=== PATIENT | male | born 1965 | race Caucasian/White ===

== ENCOUNTER 2020-11-24 02:27 | Inpatient (IN) ==
[2020-11-24 04:52] LABS: Basophils % 0.2 % (0.0-0.8); Eosinophils % 0.1 % (0.00-10.9); Immature Granulocytes % 0.7 %; Immature Granulocytes Absolute 0.08 #; Lymphocytes # 1.6 10*3/uL (1.4-4.0); Lymphocytes % 13.9 % (21.2-54.2); Mean Corpuscular HGB Conc 33.3 GM/DL (32-36); Mean Corpuscular Volume 92.3 FL (87-102); Mean Platelet Volume 10.2 FL (9.6-12.0); Monocytes % 6.3 % (1.7-12.7); Neutrophils % 78.8 % (38.7-73.9); Platelet Count 153 T/CUMM (130-400); Red Blood Count 4.55 MC/CUMM (3.8-5.5); Red Cell Distribution Width 12.9 % (9.3-17.3); White Blood Count 11.2 T/CUMM (4-12)
[2020-11-24 05:05] LABS: Albumin 3.2 G/DL (3.4-5.0); Bilirubin,Total 0.8 MG/DL (0.20-1.00); Calcium 8.7 MG/DL (8.5-10.1); Osmolality,Calculated 268.4 MOS/KG (273-304); Potassium 4.7 MMOL/L (3.5-5.1)
[2020-11-24] MEDS ORDERED: SODIUM CHLORIDE 0.9% 1,000 ML IV STA (05:54)
[2020-11-24] MEDS ORDERED: IBUPROFEN 200 MG TABLET PO STA (05:54)
[2020-11-24] MEDS ORDERED: DEXAMETHASONE 4 MG/1 ML VIAL IV STA (05:55)
[2020-11-24] MEDS ORDERED: LEVOFLOXACIN INJ 750 MG/150 ML PREMIX IV STA (05:55)
[2020-11-24] MEDS ORDERED: DEXTROSE 50% 25 GM/50 ML VIAL IV PRN (07:43)
[2020-11-24] MEDS ORDERED: GLUCAGON 1 MG VIAL IM PRN (07:43)
[2020-11-24] MEDS ORDERED: ACETAMINOPHEN 325 MG TABLET PO PRN (07:43)
[2020-11-24] MEDS ORDERED: ONDANSETRON 4 MG/2 ML VIAL IV PRN (07:43)
[2020-11-24] MEDS ORDERED: MELATONIN 3 MG TABLET PO PRN (07:51)
[2020-11-24] MEDS ORDERED: AZITHROMYCIN INJ 500 MG in SODIUM CHLORIDE 0.9% 250 ML IV SCH (08:00)
[2020-11-24] MEDS ORDERED: REMDESIVIR 100 MG in SODIUM CHLORIDE 0.9% 100 ML IV ONE (09:00)
[2020-11-24] MEDS: ENOXAPARIN 40 MG/0.4 ML SYRINGE SUBCUT SCH (09:02)
[2020-11-24] MEDS ORDERED: DEXAMETHASONE 10 MG/1 ML VIAL ONE (09:50)
[2020-11-24] MEDS: PANTOPRAZOLE 40 MG TABLET PO SCH (09:54)
[2020-11-24] MEDS: CHOLECALCIFEROL 1,000 UNIT TABLET PO SCH (09:54)
[2020-11-24] MEDS: CETIRIZINE 10 MG TABLET PO SCH (09:54)
[2020-11-24] MEDS: ASCORBIC ACID 500 MG TABLET PO SCH ×2 (09:54→23:55)
[2020-11-24] MEDS: ZINC GLUCONATE 50 MG TABLET PO SCH (09:54)
[2020-11-24] MEDS: FAMOTIDINE 20 MG TABLET PO SCH ×2 (09:54→23:55)
[2020-11-24] MEDS: DEXAMETHASONE 4 MG/1 ML VIAL IV SCH (10:03)
[2020-11-24] MEDS: cefTRIAXone 2,000 MG in SODIUM CHLORIDE 0.9% 100 ML IV SCH (10:39)
[2020-11-24] MEDS ORDERED: REMDESIVIR 200 MG in SODIUM CHLORIDE 0.9% 210 ML IV ONE (11:00)
[2020-11-25 05:29] LABS: Hematocrit 41.2 VOL% (42.0-52.0); Immature Granulocytes % 0.7 %; Immature Granulocytes Absolute 0.05 #; Lymphocytes % 15.1 % (21.2-54.2); Mean Corpuscular Volume 91.8 FL (87-102); Mean Platelet Volume 9.8 FL (9.6-12.0); Monocytes % 4.8 % (1.7-12.7); Neutrophils % 79.4 % (38.7-73.9); Platelet Count 162 T/CUMM (130-400); Red Blood Count 4.49 MC/CUMM (3.8-5.5); Red Cell Distribution Width 12.7 % (9.3-17.3); White Blood Count 6.7 T/CUMM (4-12)
[2020-11-25 05:41] LABS: Calcium 8.7 MG/DL (8.5-10.1); Osmolality,Calculated 280.5 MOS/KG (273-304); Potassium 4.2 MMOL/L (3.5-5.1)
[2020-11-25 05:45] LABS: Ferritin 591.3 ng/ml (26-388)
[2020-11-25] MEDS: ASCORBIC ACID 500 MG TABLET PO SCH ×2 (10:00→21:52)
[2020-11-25] MEDS: PANTOPRAZOLE 40 MG TABLET PO SCH (10:00)
[2020-11-25] MEDS: FAMOTIDINE 20 MG TABLET PO SCH ×2 (10:00→21:52)
[2020-11-25] MEDS: ENOXAPARIN 40 MG/0.4 ML SYRINGE SUBCUT SCH (10:03)
[2020-11-25] MEDS: DEXAMETHASONE 4 MG/1 ML VIAL IV SCH (10:03)
[2020-11-25] MEDS: CETIRIZINE 10 MG TABLET PO SCH (10:04)
[2020-11-25] MEDS: CHOLECALCIFEROL 1,000 UNIT TABLET PO SCH (10:04)
[2020-11-25] MEDS: ZINC GLUCONATE 50 MG TABLET PO SCH (10:04)
[2020-11-25] MEDS ORDERED: cefTRIAXone 1,000 MG VIAL ONE (11:27)
[2020-11-25] MEDS: cefTRIAXone 2,000 MG in SODIUM CHLORIDE 0.9% 100 ML IV SCH (11:30)
[2020-11-25] MEDS: REMDESIVIR 100 MG in SODIUM CHLORIDE 0.9% 100 ML IV SCH (13:00)
[2020-11-26 06:25] LABS: Basophils % 0.1 % (0.0-0.8); Hematocrit 39.2 VOL% (42.0-52.0); Hemoglobin 12.9 GM/DL (14.0-18.0); Immature Granulocytes % 0.7 %; Lymphocytes # 1.2 10*3/uL (1.4-4.0); Lymphocytes % 8.7 % (21.2-54.2); Mean Corpuscular HGB Conc 32.9 GM/DL (32-36); Mean Platelet Volume 10.2 FL (9.6-12.0); Monocytes % 2.9 % (1.7-12.7); Neutrophils % 87.6 % (38.7-73.9); Platelet Count 188 T/CUMM (130-400); Red Blood Count 4.17 MC/CUMM (3.8-5.5); Red Cell Distribution Width 12.8 % (9.3-17.3)
[2020-11-26 06:51] LABS: Ferritin 609.1 ng/ml (26-388)
[2020-11-26 07:02] LABS: Calcium 8.5 MG/DL (8.5-10.1); Osmolality,Calculated 286.1 MOS/KG (273-304)
[2020-11-26] MEDS: CHOLECALCIFEROL 1,000 UNIT TABLET PO SCH (09:00)
[2020-11-26] MEDS: CETIRIZINE 10 MG TABLET PO SCH (09:00)
[2020-11-26] MEDS: ASCORBIC ACID 500 MG TABLET PO SCH (09:00)
[2020-11-26] MEDS: PANTOPRAZOLE 40 MG TABLET PO SCH (09:00)
[2020-11-26] MEDS ORDERED: DEXAMETHASONE 4 MG/1 ML VIAL IV SCH (09:00)
[2020-11-26] MEDS: ENOXAPARIN 40 MG/0.4 ML SYRINGE SUBCUT SCH (09:00)
[2020-11-26] MEDS: cefTRIAXone 2,000 MG in SODIUM CHLORIDE 0.9% 100 ML IV SCH (10:30)
[2020-11-26] MEDS: ZINC GLUCONATE 50 MG TABLET PO SCH (13:30)
[2020-11-26] MEDS: FAMOTIDINE 20 MG TABLET PO SCH (13:30)
[2020-11-26 13:41] VITALS: BP 125/77
[2020-11-26] MEDS: REMDESIVIR 100 MG in SODIUM CHLORIDE 0.9% 100 ML IV SCH (13:43)
== END 2020-11-26 14:30 | disposition home or self-care (01) | DRG 177 ==
LOC: N.ED 02:27 → SUATTDRO 07:43 → N.EDINP 07:43
PROVIDERS: ADMIT Emergency Medicine; ATTEND Hospitalist